=== PATIENT | female | born 1975 | race Caucasian/White ===

== ENCOUNTER 2017-06-04 15:06 | Emergency (ER) | payer BC ==
[~2017-06-04] VITALS: Ht 132.1 cm; Wt 81.8 kg
[~2017-06-04 15:06] MED LIST: AMOXICILLIN 8751 TAB PO; RANITIDINE75 MG PO
[2017-06-04] MEDS ORDERED: ASPIRIN E.C. 8181 MG PO (15:21)
[2017-06-04] MEDS ORDERED: CELEXA 20MG20 MG/TA1 PO (15:21)
[2017-06-04] MEDS ORDERED: NITROSTAT0.4 M1 SL (15:21)
[2017-06-04] MEDS ORDERED: WELLBUTRIN SR150 M3 PO (15:22)
[2017-06-04] MEDS ORDERED: METOPROLOL SUCC25 M1 PO (15:42)
[2017-06-04 17:30] VITALS: BP 109/72
== END 2017-06-04 17:35 | disposition home or self-care (01) ==
LOC: ED 15:06
DX: T88.7XXA Unspecified adverse effect of drug or medicament, initial encounter (principal); T44.7X5A Adverse effect of beta-adrenoreceptor antagonists, initial encounter